=== PATIENT | female | born 1940 | race African-American/Black ===

== ENCOUNTER 2020-08-24 12:41 | Emergency (ER) | payer MEDICARE, SELFPAY ==
--- NOTE | ~2020-08-24 | XR_ITS ---
XR chest 2V 08/24/2020 13:20 Indication: Right-sided pain. Procedure: 2 view chest Comparison: No prior studies for comparison. Findings: There are infiltrates of the right lower lung zone. Heart size normal. The lungs are hyperi nflated which is consistent with, but not diagnostic of chronic obstructive pulmonary disease. Small right pleural effusion. Impression: 1: No infiltrates of the right lower lung zone which may represent atelectasis or developing pneumoni a. 2: Small right pleural effusion. Reviewed, dictated and finalized at location A. [employer] Impression: 1: No infiltrates of the right lower lung zone which may represent atelectasis or developing pneumonia. 2: Small right pleural effusion.
--- NOTE | 2020-08-24 12:54 | ED.GENADULT ---
HPI - General Adult General Chief complaint: Abdominal Pain Stated complaint: right side pain Time Seen by Provider: 08/24/20 12:54 Source: patient and RN notes reviewed History of Present Illness HPI narrative: Patient is an 79-year-old female who presents the urgent care with complaints of right side pain. Patient states it started 2 nights ago and she has been unable to sleep. Patient states that she has had these pains in the past and her PCP told her they were gas pains . Patient denies of any urinary symptoms such as dysuria, blood in the urine, frequency or urgency. Denies of abdominal pain, nausea, vomiting, diarrhea. Denies of any recent fever or cough. Denies of shortness of breath or chest pain. No other acute complaints. No acute distress noted. Patient aware of the plan of care. Some parts of this dictation were generated by voice recognition software and may contain typographical and/or grammatical inaccuracies. Related Data Home Medications Medication Instructions Recorded Confirmed losartan 50 mg PO DAILY 08/24/20 08/24/20 Allergies Allergy/AdvReac Type Severity Reaction Status Date / Time No Known Allergies Allergy Verified 08/24/20 12:54 Review of Systems Review of Systems: Narrative: CONSTITUTIONAL: Denies fever, chills, or sweats. EYES: Denies visual changes, redness, or discharge. ENT: Denies rhinorrhea, congestion, sore throat, or otalgia. CARDIOVASCULAR: Denies chest pain, palpitations, or edema. RESPIRATORY: Denies cough or dyspnea. GASTROINTESTINAL: Denies abdominal pain, nausea, vomiting, or diarrhea. GENITOURINARY: Denies dysuria or hematuria. SKIN: Denies rash or itching. MUSCULOSKELETAL: Reports of right side and right mid back pain NEUROLOGIC: Denies headache, numbness, or weakness. All other systems reviewed are negative, except as documented in HPI. [facility] Past Medical History Medical History (Updated 08/24/20 @ 13:43 by MANSOOR Sevilla) HTN (hypertension) Social History Social History (Updated 10/05/19 @ 09:58 by MANSOOR De Los Santos) Smoking status: Never smoker Gender identity (if verbalized by the patient): Female Comments At the time of my signature, I reviewed and agree with the nursing past medical, surgical, social, and family history. There is no relevant family history pertinent to the patient complaint. Exam Narrative: Exam Narrative: GENERAL: This is a well-nourished, well-developed patient, in no apparent distress. HEAD: normocephalic, atraumatic. EYES: PERRL. Sclera clear/white. Vision is grossly intact. EARS: External ears normal, auditory canals clear and without drainage, TMs normal without perforation. Hearing grossly intact. NOSE: External nose normal with no obvious nasal discharge, nares without redness, no rhinorrhea. THROAT: Mucous membranes moist, posterior pharynx clear. NECK: Neck supple, non-tender without lymphadenopathy, masses or thyromegaly. CARDIOVASCULAR: Regular rate and rhythm RESPIRATORY: Clear to auscultation. Decreased lung sounds on the right. No wheezes, rales, or rhonchi. GASTROINTESTINAL: Abdomen soft, non-tender, nondistended. SKIN: warm, intact with no suspicious lesions or rash, good texture and turgor. NEURO: awake, alert, and oriented to person, place and time. There were no obvious focal neurologic abnormalities. EXTREMITIES: No clubbing, cyanosis, or edema. No joint tenderness, effusion, or edema noted. No calf tenderness. Negative Homans sign bilaterally. BACK: Mild mid right tenderness Course Vital Signs Vital signs: Vital Signs Temperature 98.8 F 08/24/20 12:55 Pulse Rate 106 H 08/24/20 12:55 Respiratory Rate 16 08/24/20 12:55 Blood Pressure 161/71 H 08/24/20 12:55 Pulse Oximetry 99 08/24/20 12:55 Temperature 98.8 F 08/24/20 12:55 Pulse Rate 106 H 08/24/20 12:55 Respiratory Rate 16 08/24/20 12:55 Blood Pressure 161/71 H 08/24/20 12:55 Pulse Oximetry 99 08/24/20 12:5
[2020-08-24 12:55] VITALS: BP 161/71; PULSE 106; RESP 16; TEMP 37.1; O2SAT 99
== END 2020-08-24 13:46 | disposition home or self-care (01) ==
PROVIDERS: Emergency Provider Nurse Practitioner Family
DX: J18.9 Pneumonia, unspecified organism (principal); I10 Essential (primary) hypertension
CPT/HCPCS: 71046; 81003; 99213; G0463

== ENCOUNTER 2021-05-02 11:58 | Emergency (ER) | payer MEDICARE, SELFPAY ==
--- NOTE | ~2021-05-02 | XR_ITS ---
EXAMINATION: XR chest 2V DATE: 05/02/2021 12:27 INDICATION: Right lower lobe bronchi TECHNIQUE: PA and lateral views of the chest are obtained. COMPARISON: 08/24/2020 FINDINGS: There appears to be a nodule or mass of the right middle lobe. No acute airspace opacities are identified. There is no pleural effusion or pneumothorax. The cardiomediastinal silhouette is nor mal. There is severe thoracic spondylosis. There are changes of left mastectomy and left axillary lym ph node dissection. IMPRESSION: 1. Possible nodular mass right middle lobe. Further evaluation with CT of the chest is recommended. Reviewed, dictated and finalized at location B. IMPRESSION: 1. Possible nodular mass right middle lobe. Further evaluation with CT of the c hest is recommended.
[2021-05-02 12:08] VITALS: BP 113/78; PULSE 78; RESP 16; TEMP 36.7; O2SAT 98
--- NOTE | 2021-05-02 12:08 | ED.URI ---
HPI - URI/Sore Throat General Chief Complaint: Upper Respiratory Infection Stated Complaint: cough Time Seen by Provider: 05/02/21 12:08 Source: patient and RN notes reviewed Mode of arrival: ambulatory History of Present Illness HPI Narrative: 80-year-old female presents to the [facility] with complaints of cough and states my jose up and go is not going. Patient reports that it all started when her air conditioning broke a week ago. Denies fever. Reports cough. States she is very congested overnight and in the morning. As the day progresses it gets a little bit worse but she still feeling very fatigued. Denies chest pain, shortness of breath, abdominal pain Related Data Home Medications Medication Instructions Recorded Confirmed losartan 50 mg PO DAILY 08/24/20 05/02/21 hydrochlorothiazide 25 mg PO DAILY 05/02/21 05/02/21 meloxicam 15 mg PO DAILY 05/02/21 05/02/21 sertraline 50 mg PO DAILY 05/02/21 05/02/21 Allergies Allergy/AdvReac Type Severity Reaction Status Date / Time No Known Allergies Allergy Verified 05/02/21 12:17 Review of Systems Review of Systems: All systems reviewed & are unremarkable except as noted in HPI and below Constitutional: Constitutional: Reports as per HPI, Denies chills, Reports fatigue, Denies fever(s) and Denies weakness Eyes: Eyes: Reports no additional eye complaints ENT: Reports system reviewed and no additional complaints, except as documented Cardiovascular: Cardiovascular: Reports no additional cardiovascular complaints and Denies chest pain Respiratory: Respiratory: Reports as per HPI and Reports cough Gastrointestinal: Gastrointestinal: Reports no additional gastrointestinal complaints, Denies abdominal pain, Denies nausea and Denies vomiting Genitourinary: Genitourinary: Reports no additional female genitourinary complaints Musculoskeletal: Musculoskeletal: Reports no additional musculoskeletal complaints Integumentary/Breasts: Skin/Breast: Reports system reviewed and no additional complaints, except as docu Neurologic: Reports system reviewed and no additional complaints, except as documented Psychiatric: Psychiatric: Reports no additional psychiatric complaints Allergic/Immunologic: Allergic/Immunologic: Reports no additional allergic/immunologic complaints [facility] Past Medical History Medical History (Updated 05/02/21 @ 18:26 by Kimberli Casas) Arthritis Depression HTN (hypertension) Social History Social History Smoking status: Never smoker Gender identity (if verbalized by the patient): Female Comments At the time of my signature, I reviewed and agree with the nursing past medical, surgical, social, and family history. There is no relevant family history pertinent to the patient complaint. Exam Const: General: healthy appearing, no acute distress and alert Nutritional Appearance: well nourished Orientation/consciousness: patient oriented x3 Limitations: no limitations HENMT: Head: normal to inspection Ears: external ears normal, TM's normal bilaterally and EAC's normal Eyes: Conjunctivae: conjunctivae normal Pupils: Equal, round and reactive pupils present Neck: Neck: normal visual inspection, no lymphadenopathy and no meningeal signs Chest: Chest palpation & inspection: normal inspection of the chest Resp: Effort & Inspection: normal respiratory effort and no use of accessory muscles Auscultation: no crackles, no rales, no rhonchi, no wheezes and diminished lung sounds on the right in the lower lung hurley Cardio: Rate: regular rate Rhythm: regular rhythm : General: Yes no CVA tenderness Back/Spine/Pelvis: Back: no CVA tenderness Skin: General skin exam: normal color Rashes: no rashes Neuro: General: patient oriented x3, moves all extremities, no meningeal signs and no focal motor deficits Speech: normal speech Gait exam (Neuro): Normal gait present Extrem: General: nor
== END 2021-05-02 13:05 | disposition home or self-care (01) ==
PROVIDERS: Emergency Provider Nurse Practitioner
DX: J40 Bronchitis, not specified as acute or chronic (principal); R91.1 Solitary pulmonary nodule; M19.90 Unspecified osteoarthritis, unspecified site; I10 Essential (primary) hypertension; F32.9 Major depressive disorder, single episode, unspecified
CPT/HCPCS: 71046; 99213; G0463